=== PATIENT | male | born 1975 | race Caucasian/White ===

== ENCOUNTER 2017-07-21 12:56 | Emergency (ER) | payer MEDICAID ==
[2017-07-21] MEDS ORDERED: LORazepam 2 MG/ML INJ IVP ONE ×2 (13:23→13:27)
--- NOTE | 2017-07-21 13:29 | EDPHY ---
H & P Time Seen by Provider: 07/21/17 13:20 HPI/ROS: CHIEF COMPLAINT: Seizure HISTORY OF PRESENT ILLNESS: The patient is a 41-year-old man who uses alcohol heroin and also takes methadone. He initially presented at triage complaining that he had trouble with his jaw and tongue that they felt stiff. He then had a seizure at triage. Friends state that he has never had a seizure before but that maybe he got into some bad heroin. They then left the department. The patient is now postictal but able to answer some questions. He tells me his last drink of alcohol was about 3 days ago. He does confirm that he has never had a seizure before. He states that he is not on any seizure medications. He has a mild headache. He is moving all extremities without difficulty. He has some mild abrasions to his tongue. REVIEW OF SYSTEMS: Constitutional: denies: chills, fever, recent illness, recent injury EENTM: denies: blurred vision, double vision, nose congestion Respiratory: denies: cough, shortness of breath Cardiac: denies: chest pain, irregular heart rate, lightheadedness, palpitations Gastrointestinal/Abdominal: denies: abdominal pain, diarrhea, nausea, vomiting, blood streaked stools Genitourinary: denies: dysuria, frequency, hematuria, pain Musculoskeletal: denies: joint pain, muscle pain Skin: denies: lesions, rash, jaundice, bruising Neurological: See HPI Hematologic/Lymphatic: denies: blood clots, easy bleeding, easy bruising Immunologic/allergic: denies: HIV/AIDS, transplant EXAM: GENERAL: Well-appearing, well-nourished and in no acute distress. HEAD: Atraumatic, normocephalic. EYES: Pupils equal round and reactive to light, extraocular movements intact, sclera anicteric, conjunctiva are normal. ENT: Mild abrasions to lateral tongue, TMs normal, nares patent, oropharynx clear without exudates. Moist mucous membranes. NECK: Normal range of motion, supple without lymphadenopathy or JVD. LUNGS: Breath sounds clear to auscultation bilaterally and equal. No wheezes rales or rhonchi. HEART: Regular rate and rhythm without murmurs, rubs or gallops. ABDOMEN: Soft, nontender, normoactive bowel sounds. No guarding, no rebound. No masses appreciated. No incontinence BACK: No CVA tenderness, no spinal tenderness, step-offs or deformities EXTREMITIES: Normal range of motion, no pitting or edema. No clubbing or cyanosis. NEUROLOGICAL: Cranial nerves II through XII grossly intact. Normal speech, normal gait. 5/5 strength, normal movement in all extremities, normal sensation PSYCH: Normal mood, normal affect. SKIN: Warm, dry, normal turgor, no visible rashes or lesions. Source: Patient Exam Limitations: Clinical condition - Medical/Surgical History Hx Asthma: No Hx Chronic Respiratory Disease: No Hx Diabetes: No Hx Cardiac Disease: No Hx Renal Disease: No Hx Cirrhosis: No Hx Alcoholism: Yes Other PMH: Heroin abuse - Family History Significant Family History: No pertinent family hx - Social History Alcohol Use: Heavy Drug Use: Heroin, Marijuana Constitutional: Initial Vital Signs Temperature (C) 36.6 C 07/21/17 13:15 Heart Rate 100 07/21/17 13:15 Respiratory Rate 20 07/21/17 13:15 Blood Pressure 139/72 H 07/21/17 13:15 O2 Sat (%) 96 07/21/17 13:15 O2 Delivery Mode Room Air Allergies/Adverse Reactions: No Known Allergies Allergy (Verified 07/21/17 13:33) Home Medications: Medication Instructions Recorded Methadone HCl 07/21/17 Medical Decision Making - Diagnostics Imaging Results: Imaging Impressions Head CT 07/21/17 15:33 Impression: No acute intracranial findings. If symptoms persist and clinical suspicion warrants, consider MRI. Findings discussed with Dr. Rajeev Cisneros on 07/21/2017 at 1628 hours. Imaging: Discussed imaging studies w/ score caller Radiologist ED Course/Re-evaluation: 3:30 p.m. the patient is easy to arouse however he almost immediately falls right back to sleep. He has trouble answering questions. I do not this is because of the Ativan he received or for medical /traumatic condition. I will obtain a head CT to evaluate further. We will repeat his labs now that he has been hydrated. 4:30 p.m. the patient is improving. His anion gap has closed significantly with hydration. We will continue to observe. His head CT is unremarkable. 5:30 p.m. the patient is easily arousable and states that he would like to leave but that he quickly falls back to sleep. He denies any pain or injury. I would not expect 2 mg of Ativan to cause this degree of some last since. I will give him a test dose of Narcan to see if this changes. 5:45 p.m. the patient was able to wake up without Narcan. He is ambulatory. He wishes to go. Will discharge him at this time. Will send him to the [facility] with Librium for withdrawal protocol. Differential Diagnosis: Partial list of the Differential diagnosis considered include but were not limited to; alcohol withdrawal, opiate overdose, seizure disorder, head injury and although unlikely based on the history and physical exam, I also considered infection, neck injury acute coronary disease. I discussed these differential diagnoses and the plan with the patient as well as the usual and expected course. The patient understands that the diagnosis is provisional and that in medicine we are not always correct and that further workup is often warranted. Usual and customary warnings were given. All of the patient's questions were answered. The patient was instructed to return to the emergency department should the symptoms at all worsen or return, otherwise to followup with the physician as we discussed. - Data Points Laboratory Results: Laboratory Results 07/21/17 13:20 07/21/17 15:50 07/21/17 07/21/17 07/21/17 15:50 13:20 13:20 WBC 12.43 10^3/uL H 10^3/uL (3.80-9.50) RBC 4.18 10^6/uL L 10^6/uL (4.40-6.38) Hgb 13.5 g/dL L g/dL (13.7-17.5) POC Hgb Hct 41.0 % % (40.0-51.0) POC Hct MCV 98.1 fL fL (81.5-99.8) MCH 32.3 pg pg (27.9-34.1) MCHC 32.9 g/dL g/dL (32.4-36.7) RDW 13.6 % % (11.5-15.2) Plt Count 183 10^3/uL 10^3/uL (150-400) MPV 10.4 fL fL (8.7-11.7) Neut % (Auto) 29.9 % L % (39.3-74.2) Lymph % (Auto) 52.3 % H % (15.0-45.0) [place] % (Auto) 11.4 % % (4.5-13.0) Eos % (Auto) 5.6 % % (0.6-7.6) Baso % (Auto) 0.6 % % (0.3-1.7) Nucleat RBC Rel Count 0.0 % % (0.0-0.2) Absolute Neuts (auto) 3.72 10^3/uL 10^3/uL (1.70-6.50) Absolute Lymphs (auto) 6.50 10^3/uL H 10^3/uL (1.00-3.00) Absolute Monos (auto) 1.42 10^3/uL H 10^3/uL (0.30-0.80) Absolute Eos (auto) 0.69 10^3/uL H 10^3/uL (0.03-0.40) Absolute Basos (auto) 0.07 10^3/uL 10^3/uL (0.02-0.10) Absolute Nucleated RBC 0.00 10^3/uL 10^3/uL (0-0.01) Immature Gran % 0.2 % % (0.0-1.1) Immature Gran # 0.03 10^3/uL 10^3/uL (0.00-0.10) POC Sodium Sodium 140 mEq/L mEq/L 143 mEq/L mEq/L (135-145) (135-145) POC Potassium Potassium 4.0 mEq/L mEq/L 3.6 mEq/L mEq/L (3.5-5.2) (3.5-5.2) POC Chloride Chloride 107 mEq/L mEq/L 106 mEq/L mEq/L (97-110) (97-110) Carbon Dioxide 27 mEq/l D mEq/l 11 mEq/l L mEq/l (22-31) (22-31) Anion Gap 6 mEq/L L mEq/L 26 mEq/L H mEq/L (8-16) (8-16) POC BUN BUN 16 mg/dL mg/dL 15 mg/dL mg/dL (7-23) (7-23) Creatinine 0.7 mg/dL mg/dL 0.8 mg/dL mg/dL (0.7-1.3) (0.7-1.3) POC Creatinine Estimated GFR > 60 > 60 Glucose 92 mg/dL mg/dL 105 mg/dL H mg/dL (70-100) (70-100) POC Glucose Calcium 8.7 mg/dL mg/dL 9.4 mg/dL mg/dL (8.5-10.4) (8.5-10.4) 07/21/17 13:16 WBC RBC Hgb POC Hgb 13.6 gm/dL L gm/dL (13.7-17.5) Hct POC Hct 40 % % (40-51) MCV MCH MCHC RDW Plt Count MPV Neut % (Auto) Lymph % (Auto) [place] % (Auto) Eos % (Auto) Baso % (Auto) Nucleat RBC Rel Count Absolute Neuts (auto) Absolute Lymphs (auto) Absolute Monos (auto) Absolute Eos (auto) Absolute Basos (auto) Absolute Nucleated RBC Immature Gran % Immature Gran # POC Sodium 144 mEq/L mEq/L (135-145) Sodium POC Potassium 3.4 mEq/L mEq/L (3.3-5.0) Potassium POC Chloride 105 mEq/L mEq/L (97-110) Chloride Carbon Dioxide Anion Gap POC BUN 18 mg/dL mg/dL (7-23) BUN Creatinine POC Creatinine 0.8 mg/dL mg/dL (0.7-1.3) Estimated GFR Glucose POC Glucose 105 mg/dL H mg/dL (70-100) Calcium Medications Given: Discontinued Medications Chlordiazepoxide (Librium 25 Mg Prepack#6) 1 btl TAKEHOME EDNOW ONE Stop: 07/21/17 17:47 Last Admin: 07/21/17 17:48 Dose: 1 btl Sodium Chloride (Ns) 1,000 mls @ 0 mls/hr IV EDNOW ONE; Wide Open PRN Reason: Protocol Stop: 07/21/17 13:55 Last Admin: 07/21/17 14:05 Dose: 1,000 mls Lorazepam (Ativan Injection) 2 mg IVP EDNOW ONE Stop: 07/21/17 13:24 Last Admin: 07/21/17 13:29 Dose: 2 mg Lorazepam (Ativan Injection) 2 mg IVP EDNOW ONE Stop: 07/21/17 13:28 Last Admin: 07/21/17 13:32 Dose: Not Given Naloxone HCl (Narcan) 0.2 mg IVP EDNOW ONE Stop: 07/21/17 17:30 Last Admin: 07/21/17 17:41 Dose: Not Given Point of Care Test Results: 07/21/17 13:16 POC Sodium 144 POC Potassium 3.4 POC Chloride 105 POC BUN 18 POC Creatinine 0.8 POC Glucose 105 H Departure - Departure Disposition: Home, Routine, Self-Care Clinical Impression: Seizure, Heroin abuse Alcohol withdrawal Qualifiers: Complication of substance-induced condition: with unspecified complication Qualified Code(s): F10.239 - Alcohol dependence with withdrawal, unspecified Condition: Fair Instructions: Chlordiazepoxide (By mouth), Alcohol Withdrawal (ED), Narcotic Abuse (ED) Additional Instructions: Go directly to the [facility] Referrals: NONE *PRIMARY CARE P,. [Primary Care Provider] - As per Instructions ([facility])
[2017-07-21 13:33] LABS: PLATELET COUNT 183 10^3/uL (150-400)
[2017-07-21 13:41] VITALS: TEMP 97.9
[2017-07-21] MEDS ORDERED: NS 1,000 ML IV ONE (13:54)
[2017-07-21] MEDS ORDERED: NALOXONE HCL 0.4 MG/ML INJ IVP ONE (17:29)
[2017-07-21] MEDS ORDERED: CHLORDIAZEPOXIDE 25MG PREPK#6 BTL TAKEHOME ONE ×2 (17:40→17:46)
[2017-07-21 17:48] VITALS: BP 117/71; PULSE 85; RESP 18; O2SAT 95
== END 2017-07-21 18:24 | disposition home or self-care (01) ==
DX: R56.9 Unspecified convulsions (principal); F11.10 Opioid abuse, uncomplicated; F10.239 Alcohol dependence with withdrawal, unspecified; E86.9 Volume depletion, unspecified
CPT/HCPCS: 82947-QW; 96374; J2060

== ENCOUNTER 2018-08-20 22:09 | Emergency (ER) | payer MEDICAID ==
[2018-08-20] MEDS ORDERED: ALBUTEROL 3 ML DEYVIAL IH ONE (23:56)
[2018-08-20] MEDS ORDERED: ALBUTEROL 60 PUFFS/8 GM MDI IH PRN (23:57)
--- NOTE | 2018-08-20 23:57 | EDPHY ---
General - History Smoking Status: Current every day smoker Time Seen by Provider: 08/20/18 23:56 Narrative: PHYSICIAN DOCUMENTATION: The patient was evaluated and managed by the Physician Dietetic Intern. My co- signature indicates that I have reviewed this chart and I agree with the findings and plan of care as documented. I am the secondary supervising physician. (Christi Campbell) CLINICAL IMPRESSION: Asthma exacerbation ASSESSMENT/PLAN: Patient is a 42-year-old male with a history of asthma who presents to the emergency department with complaints of asthma exacerbation. Patient is afebrile, he is not toxic appearing and in no acute distress. His oxygen saturation was 94% on room air, lung exam revealed global inspiratory and expiratory wheeze without evidence of respiratory distress. Patient refused chest x-ray and is requesting refill for his albuterol. He was given an albuterol nebulized treatment with improvement of his symptoms, oral prednisone also given. The patient was given a refill for his albuterol inhaler and will continue Medrol Dosepak for the next several days. His vital signs were reviewed, no findings to suggest systemic illness or sepsis. He has had no other symptoms or cough to suggest other etiologies to include CHF, ACS, pneumonia, influenza or RSV; PERC negative, do not suspect PE. On repeat examination and prior to discharge the patient reports he is feeling much better , his oxygen saturation was 93% on room air. He was extremely eager to be discharged from the department. Even though we do not have one listed he does have a primary care provider and understands the importance of close follow-up. Conservative return precautions were discussed-patient will return for increased shortness of breath, development of chest pain, fever, cough or for any other concerning symptom. Patient verbalizes understanding and he is in agreement with this plan. DIFFERENTIAL DX: Differential diagnosis including but not limited to and in no particular order asthma exacerbation, pneumonia, ACS, pulmonary embolism, pneumothorax ED COURSE: 0042: On repeat examination the patient is much more comfortable appearing. His oxygen saturation is 93% on room air. His lungs had very faint wheeze. CHIEF COMPLAINT: "Asthma exacerbation" and request for inhaler refill HPI: Patient is a 42-year-old male with a longstanding history of asthma who presents to the emergency department with complaints of asthma exacerbation. Patient states this morning he had a mild exacerbation of his asthma where he was experiencing increased wheezing. He has run out of his albuterol. He was improving throughout the day however this evening got worse. He denies any recent fever, runny nose, congestion or cough. He denies any chest pain or abdominal pain. He states that this is exactly how he presents when he is having an asthma exacerbation. Appetite has been normal, he has had no nausea or vomiting. Denies any other complaint. PMH: Asthma Family History: Noncontributory Social History: Occasional smoker, denies illicit drug use REVIEW OF SYSTEMS: All other systems negative Constitutional: No fever, no chills, appetite change. Eyes: No discharge, vision change ENT: No sore throat, congestion, ear pain. Cardiovascular: No chest pain, no palpitations. Respiratory: Wheezing, no cough. Gastrointestinal: No abdominal pain, no vomiting, diarrhea. Genitourinary: No hematuria, dysuria, flank pain, pelvic pain Musculoskeletal: No back pain, joint swelling, joint pain, myalgias. Skin: No rashes, color change. Neurological: No headache, dizziness, weakness. PHYSICAL EXAM: General Appearance: Well-appearing, no acute distress. HENT: Normocephalic, atraumatic. Bilateral external ears are normal. Bilateral tympanic membranes are normal with pearly rivas reflex. Nares are clear, mucosa is pink. Oropharynx is clear, uvula is midline. There is no tonsillar enlargement or exudate. The dentition is normal. Eyes: PERRLA, no acute vision change, nystagmus, swelling, discharge, pain or photosensitivity. Conjunctiva pink, no pallor or injection Neck: Supple, nontender, no lymphadenopathy, no midline pain, FROM, no meningismus. Respiratory: There are no retractions, global inspiratory and expiratory wheeze. Cardiac: Regular rate and rhythm, no murmurs or gallops. Gastrointestinal: Abdomen is soft, nontender, bowel sounds normal, no masses/ hernia, no rigidity, guarding or focal peritoneal findings. Neurological: Alert and oriented x 3, CN 2-12 grossly intact, normal gait no ataxia, DTR's intact, normal sensation and strength Skin: Warm, dry, no rashes, no nodules on palpation. Musculoskeletal: Extremities are symmetrical, full range of motion, no tenderness, deformity, swelling, or erythema. Psychiatric: Patient is oriented X 3, there is no agitation. MEDICAL DECISION MAKING: Patient was seen independently. Secondary supervising physician at time of evaluation was Dr. Campbell, she did not evaluate this patient. Diagnosis: Acute asthma exacerbation. Summary: See Assessment and Plan for summary of ED visit Clinical lab tests: Not applicable. Independent visualization of images, tracing, or specimens: Not applicable. Decision to obtain medical records or history from someone other than the patient: No Review / Summarize previous medical records: Yes Discussed patient with another provider: Yes, Dr. Campbell Patient Progress: Stable, discharge. (Kia Lloyd) - Objective Vital Signs: Initial Vital Signs Temperature (C) 36.7 C 08/20/18 22:15 Heart Rate 96 08/20/18 22:15 Respiratory Rate 18 08/20/18 22:15 Blood Pressure 99/70 L 08/20/18 22:15 O2 Sat (%) 93 08/20/18 22:15 O2 Delivery Mode Room Air Allergies/Adverse Reactions: No Known Allergies Allergy (Verified 07/21/17 13:33) Home Medications: Medication Instructions Recorded Albuterol 08/20/18 methylPREDNISolone [Medrol Dose 1 each PO AD #1 08/21/18 Cole] Medications Given: Discontinued Medications Albuterol (Proventil Neb) 3 ml IH EDNOW ONE Stop: 08/20/18 23:57 Last Admin: 08/21/18 00:20 Dose: 3 ml Albuterol Sulfate (Proventil Inh Prepack) 1 mdi TAKEHOME EDNOW ONE Stop: 08/21/18 00:31 Last Admin: 08/21/18 00:35 Dose: 1 mdi Prednisone (Prednisone) 60 mg PO EDNOW ONE Stop: 08/21/18 00:35 Last Admin: 08/21/18 00:35 Dose: 60 mg Departure - Departure Disposition: Home, Routine, Self-Care Clinical Impression: Asthma exacerbation Qualifiers: Asthma severity: mild Asthma persistence: intermittent Qualified Code(s): J45.21 - Mild intermittent asthma with (acute) exacerbation Condition: Good Instructions: Albuterol (By breathing), Asthma (ED) Additional Instructions: DISCHARGE INSTRUCTIONS FROM YOUR DOCTOR Thank you for visiting our emergency department today. Please keep in mind that discharge from the emergency department does not mean that there is nothing wrong - it simply means that we have not identified an emergency condition that requires further evaluation or treatment in the hospital. You should always plan to follow up with primary care for re-evaluation of your condition in the next 2-3 days. Please call Thursday to be seen by your primary care provider. Consider running a cool mist humidifier in the bedroom. Consider a saline nasal spray (over the counter) ie: Neilmed sinus rinse, [place] or [place], for nasal congestion or runny nose. Ibuprofen 600 mg every 6 hours as needed for development of fever and/or pain. Take with food. Stop for stomach upset. Do not exceed 2400 mg in 24 hours. Tylenol 650 mg-1,000 mg every 4 hours as needed for development of fever and/or pain. Do not exceed 4000 mg in 24 hours. Albuterol inhaler treatments every 4 hours for the next 48 hours then every 4-6 hours as needed for coughing, shortness of breath or wheezing. Prednisone (steroid) as prescribed starting tomorrow morning. You received your first dose here today. Continue your regularly prescribed asthma medications. Schedule a follow-up appointment with your primary care provider in the next 1- 2 days, for close follow-up. Return for development of fevers, severe headache, facial swelling or redness, neck stiffness, persistent or worsening cough, coughing up blood, shortness of breath, persistent wheezing, or for any other new, worsening or worrisome symptoms. Again, thank you for choosing our emergency department. We hope that you feel better. Referrals: Russell Ontiveros MD [Medical Doctor] - 2-3 days without fail (It is important that you establish care with a primary care provider.) Prescriptions: methylPREDNISolone [Medrol Dose [place]] 1 each PO AD #1
[2018-08-21] MEDS ORDERED: ALBUTEROL INH PREPACK MDI TAKEHOME ONE (00:30)
[2018-08-21] MEDS ORDERED: predniSONE 20 MG TAB ONE (00:33)
[2018-08-21] MEDS ORDERED: predniSONE 20 MG TAB PO ONE (00:34)
[2018-08-21 00:45] VITALS: BP 134/74
== END 2018-08-21 00:45 | disposition home or self-care (01) ==
DX: J45.21 Mild intermittent asthma with (acute) exacerbation (principal); F17.200 Nicotine dependence, unspecified, uncomplicated; Z79.899 Other long term (current) drug therapy
CPT/HCPCS: J7512; J7613